=== PATIENT | male | born 1985 | race Two or more races ===

== ENCOUNTER 2019-08-03 02:06 | Emergency (ER) | payer SELFPAY ==
[~2019-08-03] VITALS: Ht 172.7 cm; Wt 68.0 kg
[2019-08-03 02:30] VITALS: BP 120/80
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
--- NOTE | 2019-08-03 02:40 | Emergency Room Report ---
History of Present Illness General Chief Complaint: Sore Throat Source: Patient Present Illness HPI Patient is a 34-year-old male who presents after increased sore throat for the past 3 to 4 days. He reports having increased difficulty with swallowing and pain. He had prior surgery to his tonsils after infection in the past. He is currently taking only Naprosyn for pain. Denies any fever. Reports having worsening difficulty swallowing. He denies any cough or chest discomfort. Denies any difficulty opening his mouth. Allergies: Coded Allergies: No Known Allergies (Unverified , 08/03/19) Patient History Past Medical History: see triage record Reviewed Nursing Documentation: PMH: Agreed; PSxH: Agreed Nursing Documentation-PMH Past Medical History: No Stated History Review of Systems All Other Systems: negative except mentioned in HPI Physical Exam Vital Signs Date Time Temp Pulse Resp B/P (MAP) Pulse Ox O2 Delivery O2 Flow Rate FiO2 08/03/19 02:15 98.4 80 18 120/80 (93) 98 Room Air General Appearance: well appearing, no apparent distress, alert, GCS 15, non- toxic Head: normocephalic, atraumatic ENT: uvula midline, tonsillar swelling, tonsillar exudate Neck: full range of motion, supple Respiratory: chest non-tender, lungs clear, no respiratory distress, speaking full sentences Cardiovascular #1: normal inspection, no edema Gastrointestinal: normal inspection, non tender, soft Musculoskeletal: no calf tenderness Neurologic: normal inspection, alert, oriented x3, responsive, brim presser III-XII nml as tested, motor strength/tone normal, normal gait Psychiatric: normal inspection, mood/affect normal Skin: no rash Medical Decision Making Diagnostic Impression: Primary Impression: Acute tonsillitis ER Course Patient presented for sore throat. Differential diagnosis included but was not limited to meningitis, exudative tonsillitis, retropharyngeal abscess, epiglottitis, strep pharyngitis. Patient appears to have a significant tonsillitis. This appears to be bacterial. Patient was given Decadron. Patient does not appear to have a abscess at this time. Patient was given viscous lidocaine for sore throat pain. He was given a prescription for narcotic pain medication due to significant swelling and discomfort. He was advised to gargle with salt water and to have her rechecked in 1 to 2 days. He is advised to return if he began having increased difficulty with swallowing or difficulty opening his mouth. He is advised to return if worse. Last Vital Signs Date Time Temp Pulse Resp B/P (MAP) Pulse Ox O2 Delivery O2 Flow Rate FiO2 08/03/19 02:15 98.4 80 18 120/80 (93) 98 Room Air Status: improved Disposition: HOME, SELF-CARE Condition: Stable Scripts Lidocaine HCl 2% Viscous (Lidocaine HCl 2% Viscous) 100 Ml Solution 10 ML ORAL QID, #100 ML Prov: Kvng Richards MD 08/03/19 Amoxicillin/Potassium Clav Es-600 Suspension (AUGMENTIN ES-600 SUSPENSION) 600 Mg/5 Ml Susp.recon 8 ML ORAL EVERY 12 HOURS for 7 Days, #112 ML Take with food & water Prov: Kvng Richards MD 08/03/19 Referrals: NOT CHOSEN IPA/,REFERRING (PCP) Kvng Richards MD Aug 03, 2019 02:40
[2019-08-03] MEDS ORDERED: Lidocaine 2% Visc 15ml soln ORAL ONE (02:45)
[2019-08-03] MEDS ORDERED: Dexamethasone 4mg/ml vial IM ONE (02:45)
[2019-08-03] MEDS ORDERED: AUGMENTIN600 MG/5 M ORAL (02:48)
[2019-08-03] MEDS ORDERED: LIDOCAINE VISC100 ML ORAL (02:48)
[2019-08-03 03:10] VITALS: BP 120/80
--- NOTE | 2019-08-03 03:10 | NUR ---
ER Nurse Note: Patient seen, treated, medically cleared to be discharged per ERMD. Discharge instructions and prescriptons given with repeat verbalization by pt. Instructed pt to follow up with primary care physican. Pt is aox4, on room air, with stable vital signs. ID band removed. Pt ambulatory; left with all belongings.
== END 2019-08-03 03:10 | disposition home or self-care (01) ==
LOC: EMR 02:30
DX: J03.90 Acute tonsillitis, unspecified (principal)
CPT/HCPCS: 96372; 99283; J1100